=== PATIENT | male | born 1995 | race Two or more races ===

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

== ENCOUNTER 2017-05-20 18:54 | Emergency (ER) | payer MEDICAID ==
--- NOTE | 2017-05-20 19:32 | ED Physician Chart ---
ED Chief Complaint/HPI - Patient Information Date Seen:: 05/20/17 Time Seen:: 19:20 Chief Complaint:: ABDOMINAL PAIN Allergies:: Allergies Allergy/AdvReac Type Severity Reaction Status Date / Time No Known Allergies Allergy Verified 05/20/17 19:11 Vitals:: Vital Signs - 8 hr 05/20/17 19:12 Temp 98.2 F HR 67 RR 18 BP 107/57 O2 Sat % 97 Family Medical History - Family Member Mother History Unknown: Yes Ethnicity: Living Status: Still Living ED Labs/Radiology/EKG Results - Radiology Results Results: LEFT KNEE X-RAY= LOOSE BODY OF THE LEFT KNEE ED Assessment - Assessment General Assessment: LOOSE BODY LEFT KNEE ED Septic Shock - . Is Septic Shock (SBP<90, OR Lactate>4 mmol\L) present?: No - <6hrs of presentation: Vital Signs: Vital Signs - 8 hr 05/20/17 19:12 Temp 98.2 F HR 67 RR 18 BP 107/57 O2 Sat % 97 ED Reassessment (Disposition) - Reassessment Reassessment Condition:: Improved - Diagnosis Diagnosis:: ABDOMINAL PAIN LOOSE BODY OF THE LEFT KNEE - Aftercare/Follow up Instructions Aftercare/Follow-Up Instructions:: Counseled pt regarding lab results/diagnosis & need follow up, Refer to Discharge Instructions, Counseled pt & family regarding lab results/diagnosis & need follow up - Patient Disposition Discharge/Transfer:: Home Condition at Disposition:: Unchanged
[2017-05-20 19:44] LABS: % BASOPHILS 0.2 % (0.0-2.0); % EOSINOPHILS 3.6 % (0.0-5.0); % LYMPHOCYTES 39.7 % (20.0-50.0); % MONOCYTES 7.5 % (2.0-10.0); HEMATOCRIT 44.4 % (39.0-49.0); MEAN CELL VOLUME 90.5 fl (80-99); MEAN CORPUSCULAR HEMOGLOBIN 30.5 pg (26.0-30.0); MEAN CORPUSCULAR HGB CONC 33.7 pg (28.0-36.0); MEAN PLATELET VOLUME 9.5 fl; NEUTROPHILE ABSOLUTE 2.5 Th/cmm (1.8-8.0); PLATELET COUNT 177 Th/cmm (150-400); RED BLOOD COUNT 4.91 Mil/cmm (4.30-5.70); RED CELL DISTRIBUTION WIDTH 11.2 % (11.5-20.0); WHITE BLOOD COUNT 5.1 Th/cmm (4.8-10.8)
[2017-05-20 19:55] LABS: INR 1.01 (0.5-1.4); PROTHROMBIN TIME (TEST) 10.5 SECONDS (9.5-11.5)
[2017-05-20 19:57] LABS: ALKALINE PHOSPHATASE 79 U/L (34-104); BILIRUBIN,TOTAL 0.8 mg/dL (0.3-1.0); BUN - UREA NITROGEN 11 mg/dL (7-25); BUN/CREATININE RATIO 12.2; CALCIUM SERUM 9.1 mg/dL (8.6-10.3); CARBON DIOXIDE 28.5 mEq/L (21.0-31.0); CHLORIDE 105 mEq/L (98-107); CREATININE - SERUM 0.9 mg/dL (0.7-1.3); GLUCOSE 99 mg/dL (70-105); POTASSIUM SERUM 3.5 mEq/L (3.5-5.1); SGOT 15 U/L (13-39); SGPT/ALT 14 U/L (7-52); SODIUM SERUM 137 mEq/L (136-145)
[2017-05-20 19:58] LABS: CHOLESTEROL 152 mg/dL (<200); TRIGLYCERIDES 202 mg/dL (<150)
--- NOTE | 2017-05-21 08:23 | Diagnostic Imaging Report ---
Exam: Left knee joint HISTORY: Left knee clicking Findings Multiple views of left knee joint reviewed. The study demonstrates no evidence of fracture dislocation or joint effusion. The patella is intact. No soft tissue swelling is noted. IMPRESSION: Normal examination of the left knee joint if clinically indicated and ligamental or meniscal injury suspected MRI examination might be helpful.
== END 2017-05-20 21:00 | disposition home or self-care (01) ==
LOC: ER 18:54
DX: R10.9 Unspecified abdominal pain (principal); M23.42 Loose body in knee, left knee
CPT/HCPCS: 36415-UA; 73562-TC-LT; 80053-TC; 80061-TC; 84484-TC; 85025-TC; 85610-TC; 85730-TC; 86592-TC